=== PATIENT | female | born 1955 | race Caucasian/White ===

== ENCOUNTER 2016-03-15 11:47 | Outpatient (CLI) | payer MEDICARE, MEDICAID ==
--- NOTE | 2016-03-15 15:36 | RAD ---
TWO VIEWS RIGHT HIP: Comparison: None. History: Low back pain. FINDINGS: Two views of the right hip shows no evidence of acute fracture or dislocation. Mild degenerative ch anges are seen. IMPRESSION: Mild right hip osteoarthritis without acute osseous abnormality. POS: [facility]
--- NOTE | 2016-03-15 15:38 | RAD ---
TWO VIEWS LEFT HIP: Comparison: None. History: Left hip pain, low back pain. FINDINGS: Two views of the left hip shows no evidence of acute fracture or dislocation. No degenerative hernandez es are seen. No focal soft tissue swelling is present. IMPRESSION: Unremarkable exam. POS: [facility]
--- NOTE | 2016-03-15 16:07 | RAD ---
THREE VIEWS LUMBOSACRAL SPINE: Comparison: None. History: Low back pain. FINDINGS: Three views of the lumbosacral spine shows normal height and alignment of the vertebral bodies and i ntervertebral discs without fracture or subluxation. Moderate osteophytes are seen throughout the l umbar spine. IMPRESSION: Degenerative changes of the lumbar spine without acute osseous abnormality. POS: [facility]
== END 2016-03-15 11:48 | disposition home or self-care (01) ==
LOC: MADRAD 11:47
PROVIDERS: ATTEND Family Medicine
DX: M54.5 Low back pain (principal); M47.816 Spondylosis without myelopathy or radiculopathy, lumbar region; M16.11 Unilateral primary osteoarthritis, right hip
CPT/HCPCS: 72100

== ENCOUNTER 2016-09-03 11:39 | Outpatient (CLI) | payer MEDICARE, OTHER ==
[2016-09-03 12:38] LABS: #Basophils 0.1 thou/uL (0.0-0.2); #Eosinphils 0.1 thou/uL (0.0-0.7); #Lymphocytes 1.9 thou/uL (1.20-3.40); #Monocytes 0.5 thou/uL (0.11-0.59); #Neutrophils 4.8 thou/uL (1.40-6.50); %Basophils 1.1 % (0.0-1.0); %Eosinophils 1.4 % (0.0-10.0); %Lymphocytes 25.8 % (21.0-51.0); %Monocytes 6.2 % (0.0-10.0); %Neutrophils 65.6 % (42.0-75.0); Hemoglobin 15.4 g/dL (12.0-16.0); Mean Corpuscular Volume 96.9 fl (81.0-99.0); Mean Platelet Volume 8.2 fL (7.4-10.4); Platelet Count 171 thou/uL (130-400); Red Blood Cell (RBC) Count 4.81 mill/uL (4.20-5.40); White Blood Cell (WBC) Count 7.3 thou/uL (4.8-10.8)
[2016-09-03 12:59] LABS: ALT (SGPT) 26 U/L (8-55); AST (SGOT) 25 U/L (5-34); Albumin 3.8 g/dL (3.4-4.8); Alkaline Phosphatase 104 U/L (40-150); Anion Gap 16 mmol/L (10-20); BUN (Urea Nitrogen) 10 mg/dL (9.8-20.1); Bilirubin, Total 0.5 mg/dL (0.2-1.2); Calc. Creatinine Clearance 0 mL/min (70-130); Calcium 9.2 mg/dL (7.8-10.44); Carbon Dioxide 22 mmol/L (23-31); Cardiac Risk 2.7 (Less than 4.5); Chloride 107 mmol/L (98-107); Cholesterol 136 mg/dl (< 200 Desired); Estimated GFR-MDRD 75; Globulin 3.7 g/dL (2.4-3.5); Glucose 83 mg/dL (80-115); HDL Cholesterol 51 mg/dL (>60 Neg Risk); LDL Cholesterol, Calculated 69 mg/dL; Potassium 4.1 mmol/L (3.5-5.1); Protein, Total 7.5 g/dL (6.0-8.3); Sodium 141 mmol/L (136-145); Triglycerides 78 mg/dL (Less than 150)
--- NOTE | 2016-09-03 16:47 | RAD ---
CHEST TWO VIEWS: HISTORY: A 61-year-old female with exertional dyspnea. COMPARISON: None. FINDINGS: Postoperative numerous surgical clips in the right axilla, evidence of prior right mastectomy. Hear t size is normal. Atherosclerosis of the aorta. Pleural and parenchymal scarring with some volume loss in the right apex. No confluent pneumonia, overt edema, or pleural effusion. IMPRESSION: Mild chronic changes. This includes some minimal scarring in the right apex. Status post right mas tectomy. No pneumonia, edema, pleural effusion, or other acute process. No old studies available f or comparison. POS: [facility]
[2016-09-05 09:15] LABS: Antinuclear AB Positive (Negative); Smith Antibodies <0.2 AI (0.0-0.9); U1RNP/snRNP IGG Autoabs <0.2 AI (0.0-0.9)
== END 2016-09-03 11:40 | disposition home or self-care (01) ==
LOC: MADLABBHPM 11:39
PROVIDERS: ATTEND Family Medicine
DX: R06.09 Other forms of dyspnea (principal); J98.4 Other disorders of lung; I10 Essential (primary) hypertension; M25.50 Pain in unspecified joint
CPT/HCPCS: 36415; 71020; 80053; 80061; 84443; 85025; 86038; 86430; 93005; 93010

== ENCOUNTER 2016-11-13 14:58 | Outpatient (CLI) | payer MEDICARE, OTHER ==
[2016-11-15 21:48] LABS: HPV High Risk Type 16 Negative (Negative); HPV High Risk Type 18 Negative (Negative); HPV Other High Risk Types Negative (Negative)
== END 2016-11-13 14:59 | disposition home or self-care (01) ==
LOC: MADLAB 14:58
PROVIDERS: ATTEND Family Medicine
DX: Z00.00 Encounter for general adult medical examination without abnormal findings (principal)
CPT/HCPCS: 87624; 88142; G0123

== ENCOUNTER 2017-05-09 17:08 | Emergency (ER) | payer MEDICARE, MEDICAID ==
[~2017-05-09 17:08] MED LIST: predniSONE 20 MG TAB ONE
[2017-05-09] MEDS ORDERED: HYDROcodone/Acetaminophen 10/325 mg Tablet ONE (19:00)
[2017-05-09] MEDS ORDERED: Naproxen 500 MG TAB ONE (19:00)
[2017-05-09] MEDS ORDERED: AMOXicillin 250 MG CAP ONE (19:00)
[2017-05-09] MEDS ORDERED: predniSONE 20 MG TAB ONE (19:00)
[2017-05-09] MEDS ORDERED: Ondansetron ODT 4 MG TAB ONE (19:00)
[2017-05-09] MEDS ORDERED: Benzonatate 100 MG CAP ONE (19:00)
== END 2017-05-09 19:50 | disposition home or self-care (01) ==
LOC: MADERS 17:08
DX: J20.9 Acute bronchitis, unspecified (principal); J44.9 Chronic obstructive pulmonary disease, unspecified; I10 Essential (primary) hypertension; F41.9 Anxiety disorder, unspecified; F32.9 Major depressive disorder, single episode, unspecified; F17.210 Nicotine dependence, cigarettes, uncomplicated; Z79.82 Long term (current) use of aspirin; Z79.899 Other long term (current) drug therapy; Z85.3 Personal history of malignant neoplasm of breast; Z86.73 Personal history of transient ischemic attack (TIA), and cerebral infarction without residual deficits
CPT/HCPCS: 99283; J7506; Q0162